=== PATIENT | male | born 1985 | race Caucasian/White ===

== ENCOUNTER → 2020-03-10 08:21 | Outpatient (BNVA) | payer OTHER, SELFPAY | PROVIDERS: PCP Internal Medicine; Visit Provider Internal Medicine | DX: R07.9 Chest pain, unspecified (principal) | CPT/HCPCS: 99202 ==

== ENCOUNTER 2020-03-10 09:00 | Emergency (ER) | payer OTHER, SELFPAY ==
--- NOTE | 2020-03-10 | XR_ITS ---
EXAMINATION: XR CHEST CLINICAL INFORMATION: Chest pain, rib pain COMPARISON: Chest radiographs 11/16/2009 TECHNIQUE: The chest is imaged in 2 views. FINDINGS: The lungs are clear. There is no pneumothorax, airspace consolidation, pleural reaction, or effusion. The heart is normal in size and the hilar and mediastinal contours are normal. No free air beneath the diaphragms. Visualized bony structures are unremarkable. IMPRESSION: Normal study.
[2020-03-10 09:10] VITALS: BP 133/82; PULSE 77; RESP 16; TEMP 37.9; O2SAT 98; BMI 29.2
--- NOTE | 2020-03-10 09:18 | ECG_ITS ---
Test Reason : CP Blood Pressure : / mmHG Vent. Rate : 059 BPM Atrial Rate : 059 BPM P-R Int : 146 ms QRS Dur : 100 ms QT Int : 420 ms P-R-T Axes : 058 060 035 degrees QTc Int : 415 ms Sinus bradycardia with sinus arrhythmia Intra-ventricular conduction delay Borderline criteria for When compared with ECG of 10-NOV-2018 10:15, No significant change was found Referred By: Titus Beckman Electronically Signed By:ISMA FRANCISCO MD
--- NOTE | 2020-03-10 09:32 | ED_ITS ---
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 He reports the pains started last night at 8pm, several hours after using the machine. He denies blunt injury or direct trauma. He denies SOB or substernal chest pain. MD elicited complaint: back pain Pertinent past history: prior back pain Onset (ago): day(s) (1) Timing: constant Severity: moderate Similar Symptoms Previously: No Quality: sharp and spasming Location: left flank and right flank Radiation: none Exacerbating factors: movement Relieving factors: immobilization Context: while lifting and turning/twisting Associated symptoms: denies other symptoms Treatments prior to arrival: acetaminophen Work related injury: Yes Related Data Previous Rx's Medication Instructions Recorded ketorolac 10 mg PO Q8H 5 Days #20 tab 03/10/20 lidocaine [Lidoderm] 1 patch TOPICAL DAILY #15 ea 03/10/20 Allergies Allergy/AdvReac Type Severity Reaction Status Date / Time No Known Allergies Allergy Unverified 02/17/20 15:27 Review of Systems Review of Systems: Constitutional: No Fever, No Chills ENT/Mouth: No sore throat, No Rhinorrhea, No Swallowing Difficulty Eyes: No Eye Pain, No Swelling, No Redness Cardiovascular: + lower Chest Pain, No SOB, No Orthopnea Respiratory: No Cough, No Sputum, No Wheezing Gastrointestinal: No Nausea, No Vomiting, No Diarrhea, No abdominal Pain, No Hematochezia, No Melena Genitourinary: No Dysuria, No Urinary Frequency, No Hematuria Musculoskeletal: No joint pain, No Myalgias Skin: No Skin Lesions, No rash Neuro: No Weakness, No Numbness, No Dizziness, No Headache Psych: No Anxiety/Panic, No Depression Heme/Lymph: No Bruising, No Lymphadenopathy Endocrine: No Polyuria, No Polydipsia All other 10 point ROS are negative. [facility] Past Medical History Attestation statement: The following information was validated with the patient. Medical History Back pain Surgical History H/O lumbar discectomy Social History Social History Alcohol intake: current Alcohol intake frequency: a few times a week Alcohol type: beer Smoking Status: Never smoker Use of substances other than those prescribed or required for medical reasons: No Advance Directives: No Advance Directives Information Provided: No Physical Exam Vital Signs and I&O and Narrative: Vital Signs and I&O: Vital Signs Temp 98.2 F 03/10/20 10:00 Pulse 77 03/10/20 09:10 Resp 16 03/10/20 09:10 BP 133/82 03/10/20 09:10 Pulse Ox 98 03/10/20 09:10 Intake & Output 03/09/20 03/10/20 03/10/20 18:59 06:59 18:59 Weight 95.254 kg Body Mass Index 29.2 Appearance: Alert. Oriented X3. No acute distress. Eyes: normal inspection Neck: Normal inspection. CVS: Normal heart rate and rhythm. Pulses normal. Respiratory: No respiratory distress. Breath sounds normal. Chest: anterior lower chest wall tenderness, no deformity or ecchymosis. lateral thoracic back tenderness with spasm Abdomen: Soft and nontender. +BS x4 Skin: Skin warm and dry. Normal skin color. Normal skin turgor. No rashes. Extremities: No lower extremity edema. Neuro: Oriented X 3. No motor deficit. No sensory deficit. Course Course Course Narrative: work related muscular injury - CXR and EKG are unremarkable. He was given a dose of Toradol IM here with significant improvement. Management of muscular strains discussed and warning signs of when to return. He will f/u with PCP and work connection. Stable for d/c. MDM - Back Pain/Injury MDM Narrative Medical decision making narrative: low suspicion for cardiac or pulmonary etiology given exam and mechanism of injury Differential Diagnosis Differential diagnosis: Likely lumbar radiculopathy, strain of lumbar region and renal colic ECG Data Attestation: I personally reviewed and interpreted this ECG as follows: ECG interpretation date: 03/10/20 Interpretation: Sinus bradycardia with HR 59, normal LA interval Discharge Plan Discharge Clinical Impression: Acute costochondritis Acute thoracic myofascial strain Qualifiers: Encounter type: initial encounter Qualified Code(s): S29.019A - Strain of muscle and tendon of unspecified wall of thorax, initial encounter Patient Disposition: Home, Self-Care Instructions: Costochondritis (ED), Thoracic Back Strain (ED) Additional Instructions: Limit lifting, strenuous exercise. Rest - use ice and/or heat several times per day. Follow up with your PCP next week. If your pain persists, or if you develop chest pain, shortness of breath - call 911 or come back to the ER for further evaluation. Prescriptions: New ketorolac 10 mg tablet 10 mg PO Q8H 5 Days Qty: 20 RF: 0 lidocaine [Lidoderm] 5 % adhesive patch,medicated 1 patch topical DAILY Qty: 15 RF: 0 Referrals: [facility] [Outside] - 2 days Stand Alone Forms: Work/School Release Interventions: ED Discharge Assessment Last Done: 03/10/20 10:38 Discharge Date/Time: 03/10/20 10:39
[2020-03-10] MEDS: Ketorolac Tromethamine 30 MG/ML VIAL IM (09:43)
[2020-03-10 10:00] VITALS: TEMP 36.8
--- NOTE | 2020-03-10 10:27 | PC.NURSE ---
MARIA ISABEL PARSONS AT BEDSIDE FOR RE EVAL.
== END 2020-03-10 10:39 | disposition home or self-care (01) ==
PROVIDERS: Emergency Provider Internal Medicine; PCP Internal Medicine
DX: S29.012A Strain of muscle and tendon of back wall of thorax, initial encounter (principal); M94.0 Chondrocostal junction syndrome [Tietze]; X50.3XXA Overexertion from repetitive movements, initial encounter; Y93.9 Activity, unspecified; Y92.9 Unspecified place or not applicable; Y99.0 Civilian activity done for income or pay
CPT/HCPCS: 71046; 93005; 96372; 99202; 99284; J1885

== ENCOUNTER → 2020-03-14 10:29 | Outpatient (BNVA) | payer OTHER, SELFPAY | PROVIDERS: PCP Internal Medicine; Visit Provider Internal Medicine | DX: R07.89 Other chest pain (principal); M54.9 Dorsalgia, unspecified | CPT/HCPCS: 99213 ==

== ENCOUNTER 2021-03-29 08:33 | Outpatient (REF) | payer OTHER, SELFPAY ==
[2021-03-29 09:37] LABS: MANUAL DIFF FLAG NO
[2021-03-29 09:45] LABS: Basophils Percent Auto 0.3 % (0-2); Eosinophils Absolute Auto 0.1 X10*3/uL (0.0-0.4); Eosinophils Percent Auto 1.9 % (0-4); Hematocrit 44.8 % (42-52); Hemoglobin 15.4 g/dl (14.0-18.0); Imm Gran Abs Auto 0.01 X10*3/uL (0.00-0.03); Imm Gran Pct Auto 0.2 % (0.0-0.4); Lymphocytes Absolute Auto 1.7 X10*3/uL (1.2-4.9); Lymphocytes Percent Auto 29.9 % (20-40); Mean Corpuscular HGB Conc 34.4 g/dl (31.0-36.0); Mean Corpuscular Hemoglobin 29.9 pg (27.0-33.0); Mean Platelet Volume 10.5 fL (9.4-12.4); Monocytes Absolute Auto 0.5 X10*3/uL (0.1-1.2); Monocytes Percent Auto 9.2 % (2-11); Neutrophils Absolute Auto 3.4 X10*3/uL (2.0-8.3); Neutrophils Percent Auto 58.5 % (45-73); Platelet Count 272 X10*3/uL (160-400); Red Blood Count 5.15 X10*6/uL (4.60-5.80); Red Cell Distribution Width 12.2 % (11.0-16.0); White Blood Count 5.8 X10*3/uL (4.8-10.8)
[2021-03-29 10:13] LABS: Alanine Aminotransferase 39 U/L (0-40); Albumin Level 4.8 g/dL (3.5-5.0); Alkaline Phosphatase 71 U/L (39-117); Anion Gap 11 (12-20); Aspartate Amino Transferase 22 U/L (5-37); Bilirubin Total 0.7 mg/dL (0.0-1.0); Blood Urea Nitrogen 13 mg/dL (9-16); Calcium 9.8 mg/dL (8.4-10.2); Carbon Dioxide 26 mmol/L (22-29); Chloride 106 mmol/L (96-108); Cholesterol 157 mg/dL; Estimated Glomerular Filt Rate > 60; Glucose Fasting 92 mg/dL (60-99); HDL Cholesterol 33 mg/dL; LDL Cholesterol Calculated 105 mg/dl; Potassium 4.5 mmol/L (3.3-5.1); Sodium 138 mmol/L (135-145); Total Protein 7.8 g/dL (6.5-8.0); Triglycerides 97 mg/dL
[2021-03-29 10:35] LABS: Thyroid Stimulating Hormone 1.14 uIU/mL (0.32-4.0)
[2021-04-03 13:01] LABS: Testosterone, Free 62.4 pg/mL (35.0-155.0); Testosterone, Total 459 ng/dL (250-1100)
== END 2021-03-29 08:34 | disposition home or self-care (01) ==
LOC: HO.LAB 08:33
PROVIDERS: PCP Internal Medicine; Visit Provider Internal Medicine
DX: Z00.00 Encounter for general adult medical examination without abnormal findings (principal); E03.9 Hypothyroidism, unspecified; E11.9 Type 2 diabetes mellitus without complications; E66.9 Obesity, unspecified
CPT/HCPCS: 36415; 80053; 80061; 84402; 84403; 84443; 85025

== ENCOUNTER 2021-06-27 09:55 | Outpatient (REF) | payer OTHER, SELFPAY | END 2021-06-27 09:56 | disposition home or self-care (01) | LOC: HO.LAB 09:55 | PROVIDERS: PCP Internal Medicine; Visit Provider Internal Medicine | DX: Z20.822 Contact with and (suspected) exposure to COVID-19 (principal); R09.89 Other specified symptoms and signs involving the circulatory and respiratory systems | CPT/HCPCS: U0003; U0005 ==

== ENCOUNTER → 2022-09-26 08:02 | Outpatient (BNVA) | payer OTHER, SELFPAY | PROVIDERS: PCP Family Medicine; Visit Provider Nurse Practitioner Family | DX: Z13.89 Encounter for screening for other disorder (principal) ==

== ENCOUNTER → 2022-10-22 07:47 | Outpatient (REF) | payer OTHER, SELFPAY | LOC: HO.SL 07:47 | PROVIDERS: PCP Family Medicine; Visit Provider Nurse Practitioner Family | DX: G47.30 Sleep apnea, unspecified (principal); R40.0 Somnolence | CPT/HCPCS: 95806 ==

== ENCOUNTER 2022-11-25 10:06 | Outpatient (REF) | payer OTHER, SELFPAY ==
[2022-11-25 11:16] LABS: MANUAL DIFF FLAG NO
[2022-11-25 11:45] LABS: Basophils Percent Auto 0.3 % (0-2); Eosinophils Absolute Auto 0.2 X10*3/uL (0.0-0.4); Eosinophils Percent Auto 3.2 % (0-4); Hematocrit 44.3 % (42.0-52.0); Imm Gran Abs Auto 0.01 X10*3/uL (0.00-0.03); Imm Gran Pct Auto 0.2 % (0.0-0.4); Lymphocytes Absolute Auto 2.2 X10*3/uL (1.2-4.9); Lymphocytes Percent Auto 36.2 % (20-40); Mean Corpuscular HGB Conc 33.9 g/dl (31.0-36.0); Mean Corpuscular Hemoglobin 29.7 pg (27.0-33.0); Mean Corpuscular Volume 87.7 fL (80.0-98.0); Mean Platelet Volume 10.8 fL (9.4-12.4); Monocytes Absolute Auto 0.5 X10*3/uL (0.1-1.2); Monocytes Percent Auto 8.7 % (2-11); Neutrophils Absolute Auto 3.1 x10*3/uL (2.0-8.3); Neutrophils Percent Auto 51.4 % (45-73); Platelet Count 251 X10*3/uL (160-400); Red Blood Count 5.05 X10*6/uL (4.60-5.80); Red Cell Distribution Width 12.6 % (11.0-16.0)
[2022-11-25 12:57] LABS: Alanine Aminotransferase 32 U/L (0-40); Albumin Level 4.4 g/dL (3.5-5.0); Alkaline Phosphatase 60 U/L (39-117); Anion Gap 11 (12-20); Aspartate Amino Transferase 20 U/L (5-37); Bilirubin Total 0.6 mg/dL (0.0-1.0); Blood Urea Nitrogen 12 mg/dL (9-16); Calcium 9.7 mg/dL (8.4-10.2); Carbon Dioxide 25 mmol/L (22-29); Chloride 106 mmol/L (96-108); Cholesterol 171 mg/dL; Estimated Glomerular Filt Rate > 60; Glucose Fasting 81 mg/dL (60-99); HDL Cholesterol 39 mg/dL; LDL Cholesterol Calculated 112 mg/dl; Potassium 3.8 mmol/L (3.3-5.1); Sodium 138 mmol/L (135-145); Total Protein 7.3 g/dL (6.5-8.0); Triglycerides 101 mg/dL
[2022-11-25 13:01] LABS: TSH reflex Free T4 1.01 uIU/mL (0.32-4.0)
[2022-11-25 13:30] LABS: Prostate Specific Antigen Scr 0.45 ng/mL (<0.05-4.0)
[2022-11-25 14:21] LABS: Appearance Urine Clear; Color Urine Yellow; Glucose Urine UA Negative (Negative); Leukocyte Esterase Urine Negative (Negative); Nitrite Urine Negative (Negative); Urine Blood Negative (Negative); Urine Ketones Negative (Negative); Urine Protein Negative (Neg-Trace)
[2022-11-25 14:49] LABS: Creatinine Urine 136.26 mg/dL; Microalbum/Creatinine Ratio Ur 3.6 ug/mg cr
== END 2022-11-25 10:07 | disposition home or self-care (01) ==
LOC: HO.WFDLDS 10:06
PROVIDERS: Visit Provider Family Medicine
DX: Z00.00 Encounter for general adult medical examination without abnormal findings (principal); Z12.5 Encounter for screening for malignant neoplasm of prostate; I10 Essential (primary) hypertension
CPT/HCPCS: 36415; 80053; 80061; 81003; 82043; 84153; 84443; 85025

== ENCOUNTER 2023-01-30 08:44 | Outpatient (AMB) | payer OTHER, SELFPAY ==
--- NOTE | 2023-01-30 08:52 | MHC.OFFVIS ---
Intake Vital Signs 01/30/23 08:53 Height 5 ft 11 in Weight 234 lb 2 oz BMI 32.7 BP 132/90 H Blood Pressure Location Rt brachial Position Sitting Intake Visit Reasons: 4m follow up JEREMIAH-Confirmed Intake Note: Patient presents for 4 month follow up 4 month.Patient states no concerns today. Allergies No Known Allergies Allergy (Verified 01/30/23 08:55) HPI HPI Comments History of Present Illness Details 37 y/o male patient presents for follow up of sleep study. The home sleep study result was significant for severe degree of sleep apnea. The AHI was 39/hr and oxygen rom was 80%. Pt started APAP [id number]. The compliance and therapy response (12/19/22-01/17/23) reviewed. The usage days 93% and the average usage hours 6 hrs and 40 min. The median pressure is 8.7 and the AHI was 2.3/hr. Pt reports that the CPAP pressure is good for him and CPAP help to open his sinus congestion. His snoring has reduced with CPAP and feels more refreshed and energy during daytime. He drools a little bit and it is bothersome. [facility] Medical History Back pain Obesity Surgical History H/O lumbar discectomy Family History Mother No problems noted. Father No problems noted. Social History Housing: House Alcohol intake: current Alcohol intake frequency: a few times a week Alcohol type: beer Patient Tobacco Use Status: Never used Tobacco e-Cigarette/Vaping Use: Never Used Second Hand Smoke Exposure: No Substance Use Type: Marijuana service: No Current occupational status: employed Cognitive needs: No Hearing needs: No Vision needs: No Review of Systems Const All systems reviewed & are unremarkable except as noted in HPI and below ENT Reports Normal hearing present Neuro Reports Normal hearing present Physical Exam Vital Signs: Last Vital Signs BP 132/90 H 01/30/23 08:53 BMI result Body Mass Index 32.7 Const General: cooperative and well developed Orientation/consciousness: patient oriented x3 Neck Neck: Yes full ROM and Yes supple Resp Effort & Inspection: normal respiratory effort and able to speak in complete sentences Neuro General: patient oriented x3, gait normal and moves all extremities Cranial nerves: Yes Normal facial strength present, Yes Midline tongue present, Yes Symmetric palate elevation present, Yes Normal hearing present, Yes Ability to bilaterally rotate head present and Yes Ability to bilaterally elevate shoulders present Cognition (Neuro): normal cognition Gait exam (Neuro): Normal gait present Motor exam (neuro): 5/5 motor strength present throughout, Pronator motor function not present and no tremor noted Psych Appearance: grossly normal Mental Status: mental status grossly normal Speech and movement: Normal speech and movement present Affect: normal affect Assessment & Plan Assessment & Plan (1) JEREMIAH (obstructive sleep apnea): Comment: Severe degree of sleep apnea. The AHI was 39/hr and oxygen rom was 80%. Code(s): G47.33 - Obstructive sleep apnea (adult) (pediatric) Plan Continue to use APAP [id number] as patient experiences good clinical effects, including reduced snoring and sleep quality has improved. Stressed compliance, use CPAP nightly and more than 4 hrs. Clean mask and tubing regularly and change the supplies routinely. Advised patient to try CPAP mask liner for drooling. Coding Level of Care Code Est Pt Level 3 (24242) Diagnoses JEREMIAH (obstructive sleep apnea) G47.33
[2023-01-30 08:53] VITALS: BP 132/90; BMI 32.7
== END 2023-01-30 09:21 | disposition home or self-care (01) ==
PROVIDERS: Visit Provider Nurse Practitioner Family
DX: G47.33 Obstructive sleep apnea (adult) (pediatric) (principal)
CPT/HCPCS: 99213

== ENCOUNTER → 2023-01-30 08:44 | Outpatient (BNVA) | payer OTHER, SELFPAY | PROVIDERS: Visit Provider Nurse Practitioner Family | DX: G47.30 Sleep apnea, unspecified (principal); R40.0 Somnolence ==

== ENCOUNTER 2023-02-24 15:58 | Outpatient (AMB) | payer OTHER, SELFPAY ==
--- NOTE | 2023-02-24 16:03 | A.OFFPC_ITS ---
Vital Signs 02/24/23 16:04 Height 5 ft 11 in Weight 243 lb 2 oz BMI 33.9 BP 118/72 Blood Pressure Location Lt brachial Pulse 84 Pulse Source Pulse Oximeter Pulse Oximetry (%) 96 Oxygen Delivery Method Room Air Intake Visit Reasons: CPE with f/u labs and health maintenance Intake Note: Patient is here for physical today. Allergies No Known Allergies Allergy (Verified 02/24/23 16:08) Tobacco use date assessed: 02/24/23 Dental Screening Did you have a dental visit in the last 12 months?: Yes Did you have a dental problem in the last 6 months where you did not have access to dental care?: No Was dental information given to patient?: Patient has dentist HPI CPE with f/u labs and health maintenance HPI Details Patient presents for CPE Feeling well. Using CPAP machine and has a little more energy now. Heart rate and blood pressure have improved. Reviewed labs with patient: Mildly low HDL His other labs are okay No new complaints PFSH Medical History Obesity Back pain Surgical History H/O lumbar discectomy Family History Mother No problems noted. Father No problems noted. Social History Housing: House Alcohol intake: current Alcohol intake frequency: a few times a week Alcohol type: beer Patient Tobacco Use Status: Never used Tobacco e-Cigarette/Vaping Use: Never Used Second Hand Smoke Exposure: No Substance Use Type: Marijuana service: No Current occupational status: employed Cognitive needs: No Hearing needs: No Vision needs: No Questionnaire Thrive Questionnaire Date Thrive assessed: 03/27/21 MANUEL-7 AMB Questionnaire MANUEL-7 Date MANUEL - 7 assessed: 03/27/21 Source: Developed by Drs. Jules Pollard, Mariza Mendiola, Brady Hoyos and colleagues, with an educational jailyn from [employer]. Review of Systems Const Denies chills, Denies fatigue, Denies fever(s), Denies headache(s) and Denies weakness Eyes Denies change in vision ENT Denies dizziness, Denies headache(s), Denies hearing loss, Denies nasal congestion, Denies sinus pain, Denies sinus pressure and Denies sore throat Card Denies chest pain, Denies lightheadedness, Denies dyspnea and Denies other (palpitations) Resp Denies cough, Denies dyspnea and Denies wheezing GI Denies abdominal pain, Denies melena, Denies hematochezia, Denies change in bowel habits, Denies dyspepsia and Denies nausea Denies hematuria and Denies dysuria Musc Denies abnormal gait, Denies myalgias, Denies arthralgias, Denies numbness and Denies tingling Skin/Breast Denies rash, Denies unusual bruising and Denies wounds Neuro Denies abnormal gait, Denies dizziness, Denies headache(s), Denies memory loss, Denies numbness, Denies Sensory deficit (Neuro), Denies tingling and Denies weakness Psych Denies anxiety, Denies depression and Denies memory loss Endo Denies cold intolerance, Denies fatigue, Denies heat intolerance, Denies polydipsia and Denies polyuria Ricardo/Lymph Denies easy bleeding and Denies easy bruising Aller/Immun Denies wheezing Physical exam (Primary Care) Vital Signs: Last Vital Signs Pulse 84 02/24/23 16:04 BP 118/72 02/24/23 16:04 Pulse Ox 96 02/24/23 16:04 Oxygen Delivery Method Room Air 02/24/23 16:04 BMI result Body Mass Index 33.9 Tobacco/Smoking Status: Tobacco use Status Tobacco use date assessed 02/24/23 02/24/23 16:09 Patient Tobacco Use Status Never used Tobacco 02/24/23 16:08 e-Cigarette/Vaping Use Never Used 02/24/23 16:08 Thrive Assessment: Date of Thrive Assessment Date Thrive assessed 03/27/21 02/24/23 16:08 Const General: no acute distress, well developed, alert and awake Nutritional Appearance: well nourished Orientation/consciousness: patient oriented x3 HENMT Other: Ear canals mildly stenotic but no infection. TMs normal bilaterally Head: Yes normocephalic and Yes atraumatic Ears: hearing grossly normal bilaterally and TM's normal bilaterally General nose exam: Normal external nose present and Normal nares present Mouth: Normal oral and palatal mucosa present and moist mucous membranes Teeth and gingiva: dentition normal Throat: Yes posterior oropharynx normal Eyes Pupils: Equal, round and reactive pupils present and Pupil accommodation reflex normal EOM: EOMs intact bilaterally Neck Neck: Yes normal visual inspection, Yes no lymphadenopathy and Yes trachea midline Thyroid: Thyroid normal Carotids: no bruits Lymphatic: no lymphadenopathy noted Chest Chest palpation & inspection: normal inspection of the chest Resp Effort & Inspection: normal respiratory effort Auscultation: clear to auscultation bilaterally Cardio Rate: regular rate Rhythm: regular rhythm Heart sounds: S1 normal heart sound present, S2 normal heart sound present, no gallops, no murmurs and no rubs Bruits: no abdominal aortic bruits and no carotid bruits GI Palpation (GI): No Abdominal aortic bruit present, Soft to palpation, nontender, No hepatosplenomegaly present and No Rebound tenderness present Auscultation: normal bowel sounds General: Yes no CVA tenderness Back/Spine/Pelvis Back: no CVA tenderness Cervical Spine: cervical ROM normal and No Cervical spine tenderness Thoracic/Lumbar Spine: thoraco-lumbar ROM normal, No pain with thoraco-lumbar ROM, No thoracic spinal tenderness and No lumbar spinal tenderness Skin Lesions: no lesions Rashes: no rashes Trauma: no lacerations or abrasions Wounds: no wounds Nails: normal Neuro General: patient oriented x3, gait normal and CN's II-XI intact bilaterally Cranial nerves: Yes Equal, round and reactive pupils present Cognition (Neuro): normal cognition Gait exam (Neuro): Normal gait present Motor exam (neuro): 5/5 motor strength present throughout Sensory Exam: No Sensory deficit (Neuro) Deep tendon reflexes (DTR's): Right patellar reflex intensity grade: 2+ and Left patellar reflex intensity grade: 2+ Extrem General: Yes normal to inspection and No edema Psych Appearance: grossly normal Affect: normal affect Attitude: cooperative Thought process: Normal thought process present Assessment and Plan Assessment & Plan (1) Adult general medical exam: Code(s): Z00.00 - Encounter for general adult medical examination without abnormal findings Plan: 38-year-old male presents for complete physical exam Encouraged healthy diet with active lifestyle and plenty of exercise (2) JEREMIAH (obstructive sleep apnea): Comment: Severe degree of sleep apnea. The AHI was 39/hr and oxygen rom was 80%. Code(s): G47.33 - Obstructive sleep apnea (adult) (pediatric) Plan: Managed with CPAP. Doing well Continue CPAP (3) Low HDL (under 40): Code(s): E78.6 - Lipoprotein deficiency Plan: Mildly low HDL Patient does not exercise much. Encouraged exercise Orders: Orders Lipid Panel 11 Months Z00.00 - Encounter for general adult medical examination without abnormal findings Microalbumin, Random (w Creat) 11 Months I10 - Essential (primary) hypertension Comprehensive [place]. Panel Fast 11 Months Z00.00 - Encounter for general adult medical examination without abnormal findings TSH reflex Free T4 11 Months Z00.00 - Encounter for general adult medical examination without abnormal findings UA and rflx microscopic 11 Months Z00.00 - Encounter for general adult medical examination without abnormal findings Coding Level of Care Code New Pt Prev Care 18-39yr([id number] Diagnoses Adult general medical exam Z00.00 JEREMIAH (obstructive sleep apnea) G47.33 Low HDL (under 40) E78.6
[2023-02-24 16:04] VITALS: BP 118/72; PULSE 84; O2SAT 96; BMI 33.9
== END 2023-02-24 16:59 | disposition home or self-care (01) ==
PROVIDERS: PCP Family Medicine; Visit Provider Family Medicine
DX: Z00.00 Encounter for general adult medical examination without abnormal findings (principal); G47.33 Obstructive sleep apnea (adult) (pediatric); E78.6 Lipoprotein deficiency
CPT/HCPCS: 99385

== ENCOUNTER 2023-07-10 11:14 | Outpatient (AMB) | payer OTHER, SELFPAY ==
[2023-07-10 11:16] VITALS: BP 120/76; PULSE 86; TEMP 36.3; O2SAT 98; BMI 32.8
--- NOTE | 2023-07-10 11:16 | MHC.OFFWIV ---
Intake Vital Signs 07/10/23 11:16 Height 5 ft 11 in Weight 235 lb BMI 32.8 BP 120/76 Blood Pressure Location Lt brachial Position Sitting Pulse 86 Pulse Source Pulse Oximeter Temp 97.4 F Temp Source Temporal Artery Scan Pulse Oximetry (%) 98 Oxygen Delivery Method Room Air Intake Visit Reasons: EP sore strep throat ([place]) Intake Note: pt is here today for sore throat strep started 2 days ago Patient Tobacco Use Status: Never used Tobacco Allergies No Known Allergies Allergy (Verified 07/10/23 11:17) Do you need a note to return to daycare/school/sports/work: No HPI HPI Comments History of Present Illness Details 38 y/o male patient presents to walk in clinic with c/o sorethroat x 2 days. PFSH Medical History Obesity Back pain Surgical History H/O lumbar discectomy Family History Mother No problems noted. Father No problems noted. Social History Housing: House Alcohol intake: current Alcohol intake frequency: a few times a week Alcohol type: beer Patient Tobacco Use Status: Never used Tobacco e-Cigarette/Vaping Use: Never Used Second Hand Smoke Exposure: No Substance Use Type: Marijuana service: No Current occupational status: employed Cognitive needs: No Hearing needs: No Vision needs: No Review of Systems Const All systems reviewed & are unremarkable except as noted in HPI and below Physical Exam Vital Signs: Last Vital Signs Temp 97.4 F 07/10/23 11:16 Pulse 86 07/10/23 11:16 BP 120/76 07/10/23 11:16 Pulse Ox 98 07/10/23 11:16 Oxygen Delivery Method Room Air 07/10/23 11:16 BMI result Body Mass Index 32.8 Const General: no acute distress HEENT Head: Yes normocephalic Ears: external ears normal and TM's normal bilaterally General nose exam: Normal external nose present and Nasal discharge present Face and sinus: Yes sinuses nontender Mouth: Abnormal oral and palatal mucosa present erythematous and white patches Throat: Yes uvula midline, Yes abnormal tonsil (Tonsils swollen, Grade 2) and Yes postnasal drainage Resp Effort & Inspection: normal respiratory effort Auscultation: clear to auscultation bilaterally Cardio Rate: regular rate Rhythm: regular rhythm Results AMB Rapid Strep AMB Rapid Strep Positive Last Edit by Janell Pandya CMA on 07/10/23 11:47 AMB Rapid Strep previously reported as Negative Janell Pandya 07/10/23 11:47 Results Reviewed Results Reviewed: Laboratory Last Values Strep Scn [facility] Clinic Positive 07/10/23 11:38 Assessment & Plan Assessment & Plan (1) Acute bacterial pharyngitis: Code(s): J02.8 - Acute pharyngitis due to other specified organisms; B96.89 - Other specified bacterial agents as the cause of diseases classified elsewhere Plan: - Complete Abx - Predn for swollen tonsils - Rest - OTC strep remedies Orders: Orders AMB Rapid Strep Screen Today Z13.9 - Encounter for screening, unspecified Medications: New penicillin V potassium 500 mg PO Q12H 10 days 20 tabs 0RF prednisone 50 mg PO DAILY 5 days 5 tabs 0RF Coding Level of Care Code Est Pt Level 3 (35876) Diagnoses Acute bacterial pharyngitis J02.8; B96.89 Time Spent (min) 15
== END 2023-07-10 11:55 | disposition home or self-care (01) ==
PROVIDERS: PCP Family Medicine; Visit Provider Nurse Practitioner Family
DX: J02.8 Acute pharyngitis due to other specified organisms (principal); B96.89 Other specified bacterial agents as the cause of diseases classified elsewhere; J02.9 Acute pharyngitis, unspecified
CPT/HCPCS: 87880; 99213